=== PATIENT | female | born 1960 | race Hispanic/Latino ===

== ENCOUNTER → 2021-05-04 | Outpatient (CLI) | payer OTHER ==
[~2021-05-04] MED LIST: REGADENOSON 0.4 MG/5 ML PF SYG IVP SCH
== END | disposition home or self-care (01) ==
LOC: RAH 08:50
PROVIDERS: ATTEND Internal Medicine
DX: R06.02 Shortness of breath (principal); R07.9 Chest pain, unspecified
CPT/HCPCS: 78452; 93017; 96374; A9500 ×2; J2785

== ENCOUNTER → 2025-01-28 | Outpatient (CLI) | payer OTHER ==
--- NOTE | 2025-01-30 15:55 | HMCSR ---
APPROVED REPORT EXAM: Two-dimensional and M-mode echocardiogram with Doppler and color Doppler. INDICATION ICD: R60.0 Localized edema 2D Dimensions RVDd3.7 cmLVEF(%)58.6 (>50%)LVEF(%, simp.)60 % IVSd1.2 (0.7-1.1cm)FS(%)30 %LA ESV INDEX (BP)23.66 mL/m2 LVDd3.5 (3.8-5.6cm)LA (2D)2.9 (1.6-4.0cm) PWd1.0 (0.7-1.1cm)Ao Root(2D)3.5 (2.0-3.7cm) IVSs1.1 cmLVOT diam1.9 (1.8-2.4cm) LVDs2.4 (2.5-4.0cm)IVC diam1.3 cm PWs1.2 cm M-Mode Dimensions EPSS0.7 cm LA (MM)3.7 (1.6-4.0cm) Ao Root(MM)2.5 (2.0-3.7cm) Aortic Valve AoV Vmax1.4 m/Eric Peak GR7.8 mmHgLVOT Vmax1.4 m/s AoV VTI0.2 mAo Mean GR3.6 mmHgLVOT VTI0.24 m EVON (VMAX)2.9 cm2Al P1/2T720 msAVA (VTI) 2.9 cm2 Mitral Valve MV E Vmax69.3 cm/sDECEL Vnrv202 ms MV A Vmax80.7 cm/sP 1/2 T45 ms E/A ratio0.9MVA (PHT)4.8 cm2 TDI E/E' Lyrjuj74.3E/E' Lateral9.9 Medial E' Peak V4.00 cm/sLateral E' Peak V7.00 cm/s Pulmonary Valve PV Vmax1.1 m/s Tricuspid Valve TR Vmax1.5 m/sRAP (EST) 3 ouMhWKGS97.7 mmHg TR Peak GR8.7 mmHg Left Ventricle The left ventricle is normal size. There is normal left ventricular wall thickness. The LVEF is 55-60 %. The left ventricular diastolic function is normal. Right Ventricle The right ventricle is normal size. The right ventricular systolic function is normal. Atria The left atrium size is normal. The right atrium size is normal. Aortic Valve The aortic valve is normal in structure. Mild aortic regurgitation is present. There is no aortic ying vular stenosis. Mitral Valve The mitral valve is mildly thickened. There is trace of mitral valve regurgitation noted. There is no mitral valve stenosis. Tricuspid Valve The tricuspid valve is normal in structure. There is no tricuspid valve regurgitation noted. Pulmonic Valve The pulmonary valve is normal in structure. There is no pulmonic valvular regurgitation. Great Vessels The aortic root is normal in size. The IVC is normal in size and collapses >50% with inspiration. Pericardium There is no pericardial effusion. Other Information Quality : Fair Conclusion The left ventricle is normal size. The LVEF is 55-60%. The left ventricular diastolic function is normal. The right ventricle is normal size. The right ventricular systolic function is normal. The left atrium size is normal. The right atrium size is normal. Mild aortic regurgitation is present. There is no pericardial effusion.
== END | disposition home or self-care (01) ==
LOC: RAH 12:07
PROVIDERS: ATTEND Internal Medicine
DX: I35.1 Nonrheumatic aortic (valve) insufficiency (principal); R60.0 Localized edema
CPT/HCPCS: 93306